=== PATIENT | male | born 1970 | race Two or more races ===

== ENCOUNTER 2019-10-12 08:02 | Inpatient (IN) | payer MEDICAID, OTHER, SELFPAY ==
[~2019-10-12] VITALS: Ht 170.2 cm; Wt 82.0 kg
--- NOTE | 2019-10-12 08:19 | NUR ---
PT AMBULATORY WITH STEADY GAIT TO ROOM. PT IN RESTROOM. SOBEIDA
--- NOTE | 2019-10-12 08:37 | NUR ---
49 y/o male presents to ed with c/o abd pain. PT STATES "I WAS AT [facility] YESTERDAY WITH THE SAME PAIN. THEY GAVE ME SOME MEDS. THEY DID AN XRAY AND ULTRASOUND. THEY GAVE ME A MEDICINE FOR MY PROSTATE AND PAIN MEDS. ALSO IF IT GOT WORSE TO COME TO THE HOSPITAL." NO C/O N/V/D, TRAUMA, SYNCOPE, CP, SOB. PT PLACED ON CONT PULSE OX,NIBP.
[2019-10-12] MEDS ORDERED: ONDANSETRON 2MG/ML, 2ML ONE (08:58)
[2019-10-12] MEDS ORDERED: MORPHINE SULFATE 4 MG/ML, 1ML ONE (08:58)
[2019-10-12] MEDS ORDERED: SODIUM CHLORIDE FLUSH 10ML SYR IVF ONE (09:00)
[2019-10-12] MEDS ORDERED: ONDANSETRON 2MG/ML, 2ML IVPush ONE (09:00)
[2019-10-12] MEDS ORDERED: MORPHINE SULFATE 4 MG/ML, 1ML IVPush PRN (09:00)
--- NOTE | 2019-10-12 09:11 | NUR ---
;PIV ESTABLISHED. PT TOLERATED WITH NO COMPLICAITONS. MEDICATIONS ADMINISTERED PER ORDER. NADN. NO NEEDS REQUESTED AT THIS TIME. UA SENT TO LAB.
[2019-10-12 09:14] LABS: BASOPHILS # (AUTO) 0.01 x10^3/uL (0-0.1); BASOPHILS % (AUTO) 0 % (0-1); EOSINOPHILS # (AUTO) 0.02 x10^3/uL (0-0.4); EOSINOPHILS % (AUTO) 0 % (1-7); LYMPHOCYTES # (AUTO) 1.04 x10^3/uL (1-3.4); LYMPHOCYTES % (AUTO) 10 % (22-44); MD NO; MEAN CORPUSCULAR HEMOGLOBIN 30.1 pg (27.5-34.5); MEAN CORPUSCULAR HGB CONC 32.8 g/dL (33.2-36.2); MEAN CORPUSCULAR VOLUME 91.8 fL (81-97); MEAN PLATELET VOLUME 6.5 fL (7.4-10.4); MONOCYTES # (AUTO) 0.59 x10^3/uL (0.2-0.8); MONOCYTES % (AUTO) 6 % (2-9); NEUTROPHILS % (AUTO) 85 % (42-75); PLATELET COUNT 291 x10^3/uL (130-400); RED BLOOD COUNT 4.25 x10^6/uL (4.38-5.82); RED CELL DISTRIBUTION WIDTH 13.2 % (9.4-14.8)
[2019-10-12 09:50] LABS: MICROSCOPIC INDICATED
[2019-10-12 09:51] LABS: ALANINE AMINOTRANSFERASE 143 U/L (12-78); ALBUMIN 2.9 g/dL (3.4-5.0); CALCIUM 8.5 mg/dL (8.5-10.1); CREATININE 0.95 mg/dL (0.7-1.3)
--- NOTE | 2019-10-12 09:53 | NUR ---
PT TO IMAGING.
[2019-10-12 10:04] LABS: ALKALINE PHOSPHATASE 221 U/L (45-117); ANION GAP 8 mmol/L (5-15); BILIRUBIN,TOTAL 1.2 mg/dL (0.2-1.0); CHLORIDE 105 mmol/L (98-107); TOTAL PROTEIN 7.2 g/dL (6.4-8.2)
--- NOTE | 2019-10-12 10:14 | NUR ---
pt back from imaging radha
[2019-10-12] MEDS ORDERED: OMNIPAQUE 350 MG/ML, 100ML BOTTLE ONE (10:16)
[2019-10-12] MEDS ORDERED: METRONIDAZOLE PMX 500MG/100ML 100 ML IV ONE (11:00)
[2019-10-12] MEDS ORDERED: CEFOTETAN PMX 1GM/50ML 50 ML IV ONE (11:00)
--- NOTE | 2019-10-12 11:00 | NUR ---
LATE ENTRY FOR 1020: BEDSIDE REPORT TO PEARL COSME.
[2019-10-12] MEDS ORDERED: CEFOTETAN PMX 1GM/50ML 50 ML ONE (11:41)
[2019-10-12] MEDS ORDERED: METRONIDAZOLE PMX 500MG/100ML 100 ML ONE (11:41)
--- NOTE | 2019-10-12 11:47 | NUR ---
Pt able to ambulate to bathroom. Pt states no pain at this time. ABX infusing. Updated on POC
[2019-10-12] MEDS: SODIUM CHLORIDE 0.9% 1,000 ML IV SCH ×2 (12:43→21:56)
[2019-10-12] MEDS ORDERED: DOCUSATE 100 MG CAPSULE PO PRN (13:00)
--- NOTE | 2019-10-12 13:35 | NUR ---
Pt requesting ice pack for GANDHI, family now at bedside, waiting for room.
--- NOTE | 2019-10-12 13:41 | NUR ---
Ice pack provided
--- NOTE | 2019-10-12 14:26 | NUR ---
Pt sleeping, no distress noted. Family at bedside. VS updated. Report provided to PEARL Santiago.
[2019-10-12] MEDS: ACETAMINOPHEN 325 MG TABLET PO PRN ×2 (15:10→20:13)
[2019-10-12] MEDS: morphine SULFATE 10 MG/ML, 1ML IVPush PRN (15:11)
[2019-10-12 15:39] VITALS: BP 119/75
[2019-10-12] MEDS ORDERED: HYDR-3240 PO (17:45)
[2019-10-12] MEDS ORDERED: TAMS-11 PO (17:45)
[2019-10-12 18:24] VITALS: BP 123/71
[2019-10-12] MEDS: METRONIDAZOLE PMX 500MG/100ML 100 ML IV SCH (21:56)
[2019-10-13] MEDS ORDERED: CEFOTETAN PMX 1GM/50ML 50 ML IV SCH (00:30)
[2019-10-13 02:21] VITALS: BP 102/64
[2019-10-13] MEDS: ACETAMINOPHEN 325 MG TABLET PO PRN ×3 (02:25→14:23)
[2019-10-13] MEDS: METRONIDAZOLE PMX 500MG/100ML 100 ML IV SCH ×3 (06:27→22:34)
[2019-10-13 06:33] LABS: BASOPHILS # (AUTO) 0.03 x10^3/uL (0-0.1); BASOPHILS % (AUTO) 0 % (0-1); EOSINOPHILS # (AUTO) 0.05 x10^3/uL (0-0.4); EOSINOPHILS % (AUTO) 0 % (1-7); LYMPHOCYTES # (AUTO) 1.31 x10^3/uL (1-3.4); LYMPHOCYTES % (AUTO) 12 % (22-44); MD NO; MEAN CORPUSCULAR HEMOGLOBIN 30.1 pg (27.5-34.5); MEAN CORPUSCULAR HGB CONC 32.7 g/dL (33.2-36.2); MEAN CORPUSCULAR VOLUME 92.1 fL (81-97); MONOCYTES # (AUTO) 0.64 x10^3/uL (0.2-0.8); MONOCYTES % (AUTO) 6 % (2-9); NEUTROPHILS # (AUTO) 8.85 x10^3/uL (1.8-6.8); NEUTROPHILS % (AUTO) 81 % (42-75); PLATELET COUNT 277 x10^3/uL (130-400); RED CELL DISTRIBUTION WIDTH 13.2 % (9.4-14.8)
[2019-10-13 06:45] LABS: ALANINE AMINOTRANSFERASE 94 U/L (12-78); ALBUMIN 2.8 g/dL (3.4-5.0); ANION GAP 4 mmol/L (5-15); CALCIUM 8.4 mg/dL (8.5-10.1); CHLORIDE 107 mmol/L (98-107)
[2019-10-13 06:47] LABS: ALKALINE PHOSPHATASE 185 U/L (45-117); BILIRUBIN,TOTAL 0.9 mg/dL (0.2-1.0); CREATININE 0.98 mg/dL (0.7-1.3); TOTAL PROTEIN 6.7 g/dL (6.4-8.2)
[2019-10-13 07:22] VITALS: BP 118/76
[2019-10-13] MEDS: SODIUM CHLORIDE 0.9% 1,000 ML IV SCH ×2 (08:30→17:28)
[2019-10-13] MEDS: PIPERACILLIN/TAZO/PMX 3.375GM 50 ML IV SCH ×3 (09:39→19:40)
[2019-10-13] MEDS: morphine SULFATE 10 MG/ML, 1ML IVPush PRN (09:41)
[2019-10-13 12:23] VITALS: BP 128/79
[2019-10-13 20:16] VITALS: BP 107/68
[2019-10-14 01:35] VITALS: BP 106/66
[2019-10-14] MEDS: SODIUM CHLORIDE 0.9% 1,000 ML IV SCH ×2 (01:55→12:11)
[2019-10-14] MEDS: PIPERACILLIN/TAZO/PMX 3.375GM 50 ML IV SCH ×4 (01:58→19:56)
[2019-10-14] MEDS: ONDANSETRON 2MG/ML, 2ML IVPush PRN (01:58)
[2019-10-14] MEDS: ACETAMINOPHEN 325 MG TABLET PO PRN (04:43)
[2019-10-14 05:40] LABS: BASOPHILS # (AUTO) 0.03 x10^3/uL (0-0.1); BASOPHILS % (AUTO) 0 % (0-1); EOSINOPHILS % (AUTO) 2 % (1-7); LYMPHOCYTES # (AUTO) 1.34 x10^3/uL (1-3.4); LYMPHOCYTES % (AUTO) 21 % (22-44); MD NO; MEAN CORPUSCULAR HEMOGLOBIN 30.6 pg (27.5-34.5); MEAN CORPUSCULAR HGB CONC 33.3 g/dL (33.2-36.2); MEAN CORPUSCULAR VOLUME 91.7 fL (81-97); MONOCYTES # (AUTO) 0.48 x10^3/uL (0.2-0.8); MONOCYTES % (AUTO) 8 % (2-9); NEUTROPHILS # (AUTO) 4.36 x10^3/uL (1.8-6.8); NEUTROPHILS % (AUTO) 69 % (42-75); PLATELET COUNT 295 x10^3/uL (130-400); RED BLOOD COUNT 4.11 x10^6/uL (4.38-5.82); RED CELL DISTRIBUTION WIDTH 12.8 % (9.4-14.8)
[2019-10-14 05:43] LABS: ANION GAP 6 mmol/L (5-15); CALCIUM 8.2 mg/dL (8.5-10.1); CHLORIDE 106 mmol/L (98-107)
[2019-10-14 05:45] LABS: CREATININE 0.94 mg/dL (0.7-1.3)
[2019-10-14] MEDS: METRONIDAZOLE PMX 500MG/100ML 100 ML IV SCH ×3 (06:19→22:34)
[2019-10-14 07:28] VITALS: BP 106/62
[2019-10-14 14:03] VITALS: BP 116/76
[2019-10-14 20:00] VITALS: BP 134/78
[2019-10-15 00:57] VITALS: BP 102/61
[2019-10-15] MEDS: ONDANSETRON 2MG/ML, 2ML IVPush PRN (01:33)
[2019-10-15] MEDS: PIPERACILLIN/TAZO/PMX 3.375GM 50 ML IV SCH ×3 (01:34→14:00)
[2019-10-15 05:35] LABS: ANION GAP 5 mmol/L (5-15); CALCIUM 8.3 mg/dL (8.5-10.1); CHLORIDE 108 mmol/L (98-107); CREATININE 1.03 mg/dL (0.7-1.3)
[2019-10-15 05:51] LABS: BASOPHILS # (AUTO) 0.01 x10^3/uL (0-0.1); BASOPHILS % (AUTO) 0 % (0-1); EOSINOPHILS # (AUTO) 0.08 x10^3/uL (0-0.4); EOSINOPHILS % (AUTO) 2 % (1-7); LYMPHOCYTES # (AUTO) 1.22 x10^3/uL (1-3.4); LYMPHOCYTES % (AUTO) 26 % (22-44); MD NO; MEAN CORPUSCULAR HEMOGLOBIN 30.5 pg (27.5-34.5); MEAN CORPUSCULAR HGB CONC 32.9 g/dL (33.2-36.2); MEAN CORPUSCULAR VOLUME 92.8 fL (81-97); MEAN PLATELET VOLUME 6.8 fL (7.4-10.4); MONOCYTES # (AUTO) 0.42 x10^3/uL (0.2-0.8); MONOCYTES % (AUTO) 9 % (2-9); NEUTROPHILS # (AUTO) 2.96 x10^3/uL (1.8-6.8); NEUTROPHILS % (AUTO) 63 % (42-75); PLATELET COUNT 361 x10^3/uL (130-400); RED BLOOD COUNT 4.18 x10^6/uL (4.38-5.82); RED CELL DISTRIBUTION WIDTH 13.2 % (9.4-14.8)
[2019-10-15] MEDS: METRONIDAZOLE PMX 500MG/100ML 100 ML IV SCH ×2 (06:06→14:30)
[2019-10-15 07:47] VITALS: BP 102/64
[2019-10-15] MEDS ORDERED: SODIUM CHLORIDE 0.9% 1,000 ML IV SCH (12:43)
[2019-10-15 13:35] VITALS: BP 113/75
[2019-10-15] MEDS ORDERED: ACET325T26 PO (14:11)
[2019-10-15] MEDS ORDERED: AMOX1TAB64 PO (14:11)
[2019-10-15] MEDS ORDERED: TRAM50TA2 PO (14:12)
== END 2019-10-15 15:05 | disposition home or self-care (01) | DRG 392 ==
LOC: ED 11:19 → EDIP 11:20 → ED 11:28 → 3N 14:55 → 4NE 18:19 → DCLOUNGE 10-15 14:55
PROVIDERS: ADMIT Family Medicine; ATTEND Internal Medicine
DX: K57.20 Diverticulitis of large intestine with perforation and abscess without bleeding (principal); D64.9 Anemia, unspecified; K59.00 Constipation, unspecified; K76.0 Fatty (change of) liver, not elsewhere classified; Z72.0 Tobacco use; Z87.442 Personal history of urinary calculi; Z20.828 Contact with and (suspected) exposure to other viral communicable diseases; N50.812 Left testicular pain; N50.811 Right testicular pain
CPT/HCPCS: 36415; 74177; 80048; 80053; 81001; 83036; 83690; 83735; 84100; 85025; 87635; 96365; 96368; 96375; G0378; J2405; J2543; Q9967; J2270; J3490; J7030